=== PATIENT | male | born 1995 | race Caucasian/White ===

== ENCOUNTER 2016-10-28 21:37 | Emergency (ER) | payer BC ==
[2016-10-28 21:43] VITALS: RESP 18
--- NOTE | 2016-10-28 22:40 | EDPHY ---
H & P Stated Complaint: Fall, head Lac, +LOC Time Seen by Provider: 10/28/16 22:32 HPI/ROS: CHIEF COMPLAINT: Syncope Hand laceration HISTORY OF PRESENT ILLNESS: The patient is a 21-year-old man who comes to the emergency department after syncopal episode and a facial laceration. He slipped on the ice and landed on his tailbone. He stood up and had pain which caused a vasovagal episode. He states that he has a history of vasovagal syncope associated with pain or blood. This has happened to him several times before. He is here for his eyebrow laceration and does not wish to be worked up for syncope. He states that they never find anything. He did not hit his head or neck. He denies having any head or neck pain. REVIEW OF SYSTEMS: Constitutional: denies: chills, fever, recent illness, recent injury EENTM: See HPI Respiratory: denies: cough, shortness of breath Cardiac: See HPI, denies: chest pain, irregular heart rate, lightheadedness, palpitations Gastrointestinal/Abdominal: denies: abdominal pain, diarrhea, nausea, vomiting, blood streaked stools Genitourinary: denies: dysuria, frequency, hematuria, pain Musculoskeletal: denies: joint pain, muscle pain Skin: See HPI Neurological: denies: headache, numbness, paresthesia, tingling, dizziness, weakness Hematologic/Lymphatic: denies: blood clots, easy bleeding, easy bruising Immunologic/allergic: denies: HIV/AIDS, transplant EXAM: GENERAL: Well-appearing, well-nourished and in no acute distress. HEAD: Atraumatic, normocephalic. EYES: Pupils equal round and reactive to light, extraocular movements intact, sclera anicteric, conjunctiva are normal. ENT: 2 cm laceration just above left eyebrow laterally. TMs normal, nares patent, oropharynx clear without exudates. Moist mucous membranes. NECK: Normal range of motion, supple without lymphadenopathy or JVD. LUNGS: Breath sounds clear to auscultation bilaterally and equal. No wheezes rales or rhonchi. HEART: Regular rate and rhythm without murmurs, rubs or gallops. ABDOMEN: Soft, nontender, normoactive bowel sounds. No guarding, no rebound. No masses appreciated. BACK: No CVA tenderness, no spinal tenderness, step-offs or deformities EXTREMITIES: Normal range of motion, no pitting or edema. No clubbing or cyanosis. NEUROLOGICAL: Cranial nerves II through XII grossly intact. Normal speech, normal gait. 5/5 strength, normal movement in all extremities, normal sensation PSYCH: Normal mood, normal affect. SKIN: See above, Warm, dry, normal turgor, no visible rashes or lesions. Source: Patient Exam Limitations: No limitations - Personal History Current Tetanus Diphtheria and Acellular Pertussis (TDAP): Yes - Medical/Surgical History Hx Asthma: No Hx Chronic Respiratory Disease: No Hx Diabetes: No Hx Cardiac Disease: No Hx Renal Disease: No Hx Cirrhosis: No Hx Alcoholism: No Hx HIV/AIDS: No Hx Splenectomy or Spleen Trauma: No Other PMH: Denies - Family History Significant Family History: No pertinent family hx - Social History Smoking Status: Former smoker Alcohol Use: Sober Drug Use: None Constitutional: Initial Vital Signs Temperature (C) 36.6 C 10/28/16 21:40 Heart Rate 90 10/28/16 21:40 Respiratory Rate 18 10/28/16 21:40 Blood Pressure 134/80 H 10/28/16 21:40 O2 Sat (%) 98 10/28/16 21:40 O2 Delivery Mode Room Air Allergies/Adverse Reactions: amoxicillin Allergy (Verified 10/28/16 21:39) Home Medications: Medication Instructions Recorded Certa Shane Liquid 10/28/16 Medical Decision Making Procedures: Procedure: Laceration repair. Verbal consent was obtained from the patient. The 2 cm forehead laceration was anesthetized with 0.5% bupivacaine locally infiltrated. The wound was irrigated copiously according to protocol, draped and explored to its base. It was approximately 1/2 cm deep. There were no deep structures involved. No tendon, nerve, or vascular injury was identified when explored through full range of motion. No foreign body was identified. The wound was repaired with 6 point neuro chromic gut, 3 sutures, interrupted. The wound repair was simple without wound margin revisement or multiple flap alignment. The procedure was performed by myself. A dressing was then placed with sterile gauze . ED Course/Re-evaluation: Patient tolerated suture repair well. He again refused imaging or EKG or lab work. He is not concerned about the vasovagal or syncopal episode simply is here for laceration repair. Differential Diagnosis: Partial list of the Differential diagnosis considered include but were not limited to; laceration, syncope, tailbone injury and although unlikely based on the history and physical exam, I also considered substance abuse, assault. I discussed these differential diagnoses and the plan with the patient as well as the usual and expected course. The patient understands that the diagnosis is provisional and that in medicine we are not always correct and that further workup is often warranted. Usual and customary warnings were given. All of the patient's questions were answered. The patient was instructed to return to the emergency department should the symptoms at all worsen or return, otherwise to followup with the physician as we discussed. Departure - Departure Disposition: Home, Routine, Self-Care Clinical Impression: Laceration Condition: Good Instructions: Laceration (ED), Care For Your Absorbable Stitches (ED) Additional Instructions: If your stitches did not dissolve in 5 days return to have them removed. Referrals: OUT OF STATE,. [Primary Care Provider] - As per Instructions
[2016-10-28 23:41] VITALS: BP 118/74; PULSE 68; TEMP 98.6; O2SAT 95
== END 2016-10-28 23:39 | disposition home or self-care (01) ==
PROC: 0HQ1XZZ Repair Face Skin, External Approach (ICD-10-PCS; principal; 2016-10-28)
DX: S01.112A Laceration without foreign body of left eyelid and periocular area, initial encounter (principal); Z87.891 Personal history of nicotine dependence; W00.0XXA Fall on same level due to ice and snow, initial encounter